=== PATIENT | female | born 1965 | race Caucasian/White ===

== ENCOUNTER 2017-12-15 12:14 | Emergency (ER) | payer OTHER ==
[~2017-12-15] VITALS: Ht 165.1 cm; Wt 63.5 kg
[~2017-12-15 12:14] MED LIST: AZIT250T12 PO; AZTH250C PO; HYDR-757 PO; HYDR1TAB PO; NAPR550T; NITR-65 PO; POTA20TA8 PO; PRD20T PO
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
[2017-12-15] MEDS ORDERED: CYCL5TAB PO (13:22)
[2017-12-15] MEDS ORDERED: NAPR-1071 PO (13:22)
[2017-12-15 13:30] VITALS: BP 140/95
== END 2017-12-15 13:33 | disposition home or self-care (01) ==
LOC: EDUNIT# 12:14 → ER 12:17
DX: S39.012A Strain of muscle, fascia and tendon of lower back, initial encounter (principal); G40.909 Epilepsy, unspecified, not intractable, without status epilepticus; M06.9 Rheumatoid arthritis, unspecified; F31.9 Bipolar disorder, unspecified; Z88.5 Allergy status to narcotic agent; Z88.2 Allergy status to sulfonamides; Z87.59 Personal history of other complications of pregnancy, childbirth and the puerperium; Z98.51 Tubal ligation status; V43.63XA Car passenger injured in collision with pick-up truck in traffic accident, initial encounter
CPT/HCPCS: 70450; 71046; 72125; 72131; 72170

== ENCOUNTER 2019-05-30 08:03 | Observation (INO) | payer SELFPAY ==
[~2019-05-30] VITALS: Ht 165.1 cm; Wt 63.5 kg
[~2019-05-30 08:03] MED LIST changes: +CYCL5TAB PO; +NAPR-1071 PO
[2019-05-30 08:37] LABS: BASOPHILS # (AUTO) 0.1 10^3/uL (0.0-0.1); BASOPHILS % (AUTO) 1 % (0-10); EOSINOPHILS # (AUTO) 0.3 10^3/uL (0.0-0.3); EOSINOPHILS % (AUTO) 2 % (0-10); HEMATOCRIT 38 % (35-52); HEMOGLOBIN 12.5 G/DL (11.5-16.0); LYMPHOCYTES % (AUTO) 14 % (12-44); MEAN CORPUSCULAR HEMOGLOBIN 31 PG (25-34); MEAN CORPUSCULAR HGB CONC 33 G/DL (32-36); MEAN CORPUSCULAR VOLUME 94 FL (80-99); MEAN PLATELET VOLUME 10.2 FL (7.4-10.4); MONOCYTES # (AUTO) 1.7 X 10^3 (0.0-1.0); MONOCYTES % (AUTO) 12 % (0-12); NEUTROPHILS # (AUTO) 10.5 X 10^3 (1.8-7.8); NEUTROPHILS % (AUTO) 72 % (42-75); PLATELET COUNT 301 10^3/uL (130-400); RED CELL DISTRIBUTION WIDTH 17.8 % (10.0-14.5); WHITE BLOOD COUNT 14.6 10^3/uL (4.3-11.0)
[2019-05-30 08:38] LABS: BILIRUBIN,URINE NEGATIVE (NEGATIVE); CLARITY,URINE CLEAR; COLOR,URINE YELLOW; GLUCOSE, URINE (UA) NEGATIVE (NEGATIVE); KETONES,URINE TRACE (NEGATIVE); LEUKOCYTE ESTERASE ,URINE 1+ (NEGATIVE); NITRITE,URINE NEGATIVE (NEGATIVE); PROTEIN,URINE 1+ (NEGATIVE)
[2019-05-30 08:45] LABS: BACTERIA,URINE FEW /HPF
[2019-05-30 08:56] LABS: ANISOCYTOSIS SLIGHT; EOSINOPHILS % (MANUAL) 3 %; LYMPHOCYTES % (MANUAL) 16 %; MONOCYTES % (MANUAL) 7 %; NEUTROPHILS % (MANUAL) 74 %
[2019-05-30 08:58] LABS: ALANINE AMINOTRANSFERASE 11 U/L (0-55); ALBUMIN 3.7 GM/DL (3.2-4.5); ALKALINE PHOSPHATASE 98 U/L (40-136); BILIRUBIN,TOTAL 0.4 MG/DL (0.1-1.0); BUN/CREATININE RATIO 15; CALCIUM 9.4 MG/DL (8.5-10.1); CARBON DIOXIDE 25 MMOL/L (21-32); CHLORIDE 103 MMOL/L (98-107); GFR ESTIMATED > 60; GLUCOSE 111 MG/DL (70-105); MAGNESIUM 1.9 MG/DL (1.6-2.4); POTASSIUM 3.7 MMOL/L (3.6-5.0); SODIUM 139 MMOL/L (135-145)
--- NOTE | 2019-05-30 09:04 | Diagnostic Imaging Report ---
EXAMINATION: Chest 2 view HISTORY: Fever and chills COMPARISON: 12/15/2017 FINDINGS: The lungs are clear without edema or pneumonia. No pleural effusion or pneumothorax. Heart size is normal. IMPRESSION: 1. Clear lungs. Dictated by: Dictated on workstation # [id number]
--- NOTE | 2019-05-30 09:16 | Diagnostic Imaging Report ---
EXAM: SHOULDER, RIGHT, 3 VIEWS. INDICATION: Right shoulder pain. Right neck pain. COMPARISON: 09/09/2009. FINDINGS: Cortical irregularity in the distal third of the right clavicle is new since the prior exam. No cortical lucencies are identified. No substantial degenerative change. The soft tissue shadows are unremarkable. IMPRESSION: Cortical irregularity involving the distal third of the right clavicle is new since the prior exam but appears chronic. No cortical lucencies to suggest an acute fracture. Dictated by: Dictated on workstation # [id number]
--- NOTE | 2019-05-30 10:05 | NUR ---
NOTIFIED PT THAT EVERYTHING WAS BACK ET DR WOULD BE IN WHEN HE COULD. DENIES NEEDS AT THIS TIME.
--- NOTE | 2019-05-30 10:42 | NUR ---
IN TALKING TO PT AT THIS TIME.
[2019-05-30] MEDS ORDERED: NS IV 1000 ML 1,000 ML IV ONE (10:43)
[2019-05-30] MEDS ORDERED: cefTRIAXone FOR IV USE 1,000 MG in WATER (STERILE) FOR INJECTION 10 ML IV ONE (10:45)
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
--- NOTE | 2019-05-30 11:11 | NUR ---
DR FABIAN HERE TO SEE PT.
[2019-05-30 11:40] VITALS: BP 126/79
--- NOTE | 2019-05-30 11:56 | NUR ---
CLOE ROMERO admitted to room 412-1, with an admitting diagnosis of UTI-Sepsis, on 05/30/19 from ER, accompanied by Staff.COLE ROMERO introduced to surroundings, call light, bed controls, phone, TV, temperature control, lights, meal times, smoking policy, visitor policy, side rail policy, bathrooms and showers. Patient Rights given to patient in the handbook. COLE ROMERO verbalizes understanding that [facility] is not responsible for the loss or damage to any personal effects or valuables that are kept in the patients posession during their hospitalization. COLE ROMERO verbalizes understanding of Interdisciplinary Patient Education. Patient and/or family were informed about the Rapid Response Team and its purpose.
[2019-05-30] MEDS ORDERED: ONDANSETRON 4 MG/2 ML (SDV) Z0FRAN IV PRN (12:00)
[2019-05-30] MEDS ORDERED: IBUPROFEN 600 MG (MOTRIN) TAB PO PRN (12:00)
[2019-05-30] MEDS ORDERED: ACETAMINOPHEN 500 MG TAB (TYLENOL) PO PRN (12:00)
[2019-05-30 12:01] VITALS: BP 126/79
[2019-05-30] MEDS ORDERED: ASPI-983 PO (13:19)
--- NOTE | 2019-05-30 13:20 | NUR ---
SPOKE WITH THE PATIENT ABOUT HER MEDICATIONS. SHE STATES SHE IS CURRENTLY ONLY TAKING ASPIRIN 81MG DAILY OTC.
[2019-05-30] MEDS ORDERED: CALCIUM CARBONATE 500 MG (TUMS) TAB.CHEW PO PRN (13:30)
[2019-05-30] MEDS ORDERED: HYDROcodone/APAP 5 MG/325 MG (LORTAB) TAB PO PRN (13:30)
[2019-05-30] MEDS ORDERED: LOPERAMIDE 2 MG (IMODIUM) TABLET PO PRN (13:30)
[2019-05-30] MEDS ORDERED: IBUPROFEN TABLET 200 MG TAB PO PRN (13:30)
[2019-05-30] MEDS ORDERED: MELATONIN 3 MG TABLET PO PRN (13:30)
[2019-05-30] MEDS ORDERED: ALPRAZolam 0.25 MG (XANAX) TAB PO PRN (13:30)
[2019-05-30] MEDS ORDERED: diphenhydrAMINE 25 MG TAB (BENADRYL) PO PRN (13:30)
[2019-05-30] MEDS ORDERED: DOCUSATE SODIUM 100 MG (COLACE) CAP PO PRN (13:30)
--- NOTE | 2019-05-30 14:22 | History & Physical-Hospitalist ---
ARIELA CASTANON,MED STUDENT 05/30/19 1422: History of Present Illness HPI/Chief Complaint CC: Fever, malaise HPI: Pt presented to ER to have her shoulder evaluated after traumatic fall that occurred one week ago after experiencing ongoing pain and new onset fever/chills. During this time, the color of her urine changed and she was urinating less frequently. Endorses associated myalgia, KOCH, SOB, abdominal discomfort, cough, suprapubic pain. Tried aleve with some reduction in fever. Accompanied by in room. Source: patient, family Date Seen 05/30/19 Time Seen by a Provider: 14:15 Attending Physician Janette Fabian DO [facility] Referring Physician Date of Admission May 30, 2019 at 11:20 Home Medications & Allergies Home Medications Reviewed patient Home Medication Reconciliation performed by pharmacy medication reconciliations instrument technician and/or nursing. Patients Allergies have been reviewed. Allergies Allergies Coded Allergies Sulfa (Sulfonamide Antibiotics) (Unverified Allergy, Mild, 12/18/08) bupropion (Unverified Allergy, Mild, 12/18/08) codeine (Unverified Allergy, Mild, 12/18/08) Past Xmijjik-Ohhezu-Vndnjd Hx Patient Social History Alcohol Use: Rarely Uses Recreational Drug Use: No Smoking Status: Current Everyday Smoker 2nd Hand Smoke Exposure: Yes Recent Foreign Travel: No Contact w/other who traveled: No Recent Infectious Disease Expo: No Seasonal Allergies Seasonal Allergies: Yes Past Medical History Surgeries: Section, Lumpectomy, Orthopedic, Tubal Ligation Neurological: Seizure Disorder, TIA Tubal Ligation Musculoskeletal: Rheumatoid Arthritis Cancer: Cervical Psychosocial: Bipolar History of Blood Disorders: No Family History Arthritis 19 FATHER 19 MOTHER Asthma 19 MOTHER G8 SISTER Cataracts 19 MOTHER Hypertension 19 MOTHER Neoplasm 19 FATHER Thyroid disease 19 MOTHER G8 SISTER Asthma (father, mother ), Cancer (pancreatic cancer in father ), CAD Over 55 Years Old Review of Systems Constitutional: chills, diaphoresis, fever, malaise, weakness EENTM: ear pain (R ear ), eye pain (pressure behind eyes ); No hearing loss, No blurred vision, No double vision Respiratory: cough, dyspnea on exertion (recent, past few days ); No hemoptysis; phlegm, short of breath Cardiovascular: No chest pain, No edema, No Hx of Intervention; palpitations Gastrointestinal: abdominal pain (diffusely across stomach ); No constipation, No diarrhea, No dysphagia, No hematemesis, No heartburn, No melena; nausea; No vomiting Genitourinary: see HPI, decreased output, dysuria, pain Musculoskeletal: back pain, joint pain; No muscle cramps Skin: No lesions, No lumps, No rash Psychiatric/Neurological: Anxiety, Depressed, Headache Physical Exam Physical Exam Vital Signs Vital Signs - First Documented 05/30/19 08:03 Temp 37.8 Pulse 94 Resp 16 B/P (MAP) 106/96 (99) Pulse Ox 100 O2 Delivery Room Air Capillary Refill : Less Than 3 Seconds Height, Weight, BMI Height: 5'5.00" Weight: 140lbs. 0oz. [id number]; 23.29 BMI Method:Stated General Appearance: No Apparent Distress, WD/WN Eyes: Bilateral Eye Normal Inspection, Bilateral Eye PERRL, Bilateral Eye EOMI HEENT: Pharynx Normal, Moist Mucous Membranes Neck: Non Tender, Supple Respiratory: Chest Non Tender, Lungs Clear, Normal Breath Sounds, No Accessory Muscle Use, No Respiratory Distress Cardiovascular: No Edema, No Gallop, No Murmur, Normal Peripheral Pulses, Irregularly Irregular Gastrointestinal: Non Tender, Soft Back: Normal Inspection, No CVA Tenderness Extremity: Non Tender, No Calf Tenderness, No Pedal Edema Neurologic/Psychiatric: Alert, Oriented x3 Skin: Normal Color, Warm/Dry Lymphatic: No Adenopathy (cervical, supra/infraclavicular) Results Results/Procedures Labs Laboratory Tests 05/30/19 08:27 Patient resulted labs reviewed. Imaging: Reviewed Imaging Films, Reviewed Imaging Report Assessment/Plan Admission Diagnosis Urinary tract infection Admission Status: Observation Assessment and Plan UTI Sepsis URI R shoulder pain Admit for observation IVF support, antipyretics, pain control and Ceftriaxone cover UTI and possible URI DVT prophylaxis Clinical Quality Measures DVT/VTE Risk/Contraindication: Risk Factor Score Per Nursin RFS Level Per Nursing on Admit: 2=Moderate JANETTE FABIAN DO 05/30/192021: History of Present Illness HPI/Chief Complaint CC: Fever HPI: this is a 53yoWF with essentially no medical history who presented with fever and lethargy found to have UTI and sepsis with elevated lactic acid and white count. Her BP was maintained and good level so she was placed empirically on antibiotics, IV fluids, Influenza was negative and will be provided supportive care and likely DC tomorrow. Source: patient Past Xanozxr-Elxufi-Ppzvay Hx Past Med/Social Hx: Reviewed Nursing Past Med/Soc Hx, Reviewed and Corrections made Patient Social History Marrital Status: Employed/Student: employed ([employer]) Smoking Status: Current Everyday Smoker Family History Arthritis 19 FATHER 19 MOTHER Asthma 19 MOTHER G8 SISTER Cataracts 19 MOTHER Hypertension 19 MOTHER Neoplasm 19 FATHER Thyroid disease 19 MOTHER G8 SISTER Review of Systems Constitutional: see HPI, dizziness, fever, malaise, weakness Physical Exam Physical Exam General Appearance: Mild Distress, Other (mildly acutely ill) Eyes: Right Eye Normal Inspection, Right Eye PERRL HEENT: PERRL/EOMI, Normal ENT Inspection, Pharynx Normal, Moist Mucous Membranes Neck: Full Range of Motion, Normal Inspection, Non Tender Respiratory: Chest Non Tender, Lungs Clear, Normal Breath Sounds, No Accessory Muscle Use, No Respiratory Distress Cardiovascular: Regular Rate, Rhythm, No Edema, No Gallop, No JVD, No Murmur, Normal Peripheral Pulses Gastrointestinal: Normal Bowel Sounds, No Organomegaly, No Pulsatile Mass, Non Tender, Soft Back: Normal Inspection, No CVA Tenderness, No Vertebral Tenderness Extremity: Normal Capillary Refill, Normal Inspection, Normal Range of Motion, Non Tender, No Calf Tenderness, No Pedal Edema Neurologic/Psychiatric: Alert, Oriented x3, No Motor/Sensory Deficits, Normal Mood/Affect Skin: Normal Color, Warm/Dry Lymphatic: No Adenopathy Assessment/Plan Admission Diagnosis Assessment: Sepsis UTI Dehydration Plan: IV abx IVF Pain meds Admission Status: Observation Diagnosis/Problems Diagnosis/Problems (1) Sepsis Status: Acute Qualifiers: Sepsis type: sepsis due to unspecified organism Sepsis acute organ dysfunction status: without acute organ dysfunction Qualified Codes: A41.9 - Sepsis, unspecified organism (2) Urinary tract infection Status: Acute Qualifiers: Urinary tract infection type: site unspecified Hematuria presence: without hematuria Qualified Codes: N39.0 - Urinary tract infection, site not specified Supervisory-Addendum Brief Verification & Attestation Participated in pt care: history, MDM, physical Personally performed: exam, history, MDM, supervision of care Care discussed with: Medical Student Procedures: n/a Results interpretation: Verified all documentation Verification and Attestation of Medical Student E/M Service A medical student performed and documented this service in my presence. I reviewed and verified all information documented by the medical student and made modifications to such information, when appropriate. I personally performed the physical exam and medical decision making. Janette Fabian, May 30, 2019,20:22 ARIELA CASTANON,MED STUDENT May 30, 2019 14:22 JANETTE CRUMP DO May 30, 2019 20:22 POS
[2019-05-30] MEDS: ENOXAPARIN 40 MG/0.4 ML (LOVENOX) SYR SC SCH (14:44)
[2019-05-30 15:52] VITALS: BP 112/74
[2019-05-30 19:17] VITALS: BP 99/63
[2019-05-30 19:46] VITALS: BP 110/68
[2019-05-30] MEDS: POLYETHYLENE GLYCOL 17 GM (MIRALAX) PACK PO SCH (19:46)
[2019-05-30] MEDS: SENNA W/DOCUSATE (SENOKOT S) TABLET PO SCH (19:46)
[2019-05-31] VITALS: BP 148/80
[2019-05-31 04:00] VITALS: BP 103/63
[2019-05-31 06:50] LABS: BASOPHILS # (AUTO) 0.1 10^3/uL (0.0-0.1); BASOPHILS % (AUTO) 1 % (0-10); EOSINOPHILS # (AUTO) 0.4 10^3/uL (0.0-0.3); EOSINOPHILS % (AUTO) 5 % (0-10); HEMATOCRIT 31 % (35-52); LYMPHOCYTES # (AUTO) 2.1 X 10^3 (1.0-4.0); LYMPHOCYTES % (AUTO) 25 % (12-44); MEAN CORPUSCULAR HEMOGLOBIN 31 PG (25-34); MEAN CORPUSCULAR HGB CONC 32 G/DL (32-36); MEAN CORPUSCULAR VOLUME 94 FL (80-99); MEAN PLATELET VOLUME 10.8 FL (7.4-10.4); MONOCYTES % (AUTO) 12 % (0-12); NEUTROPHILS # (AUTO) 4.9 X 10^3 (1.8-7.8); NEUTROPHILS % (AUTO) 58 % (42-75); PLATELET COUNT 238 10^3/uL (130-400); RED CELL DISTRIBUTION WIDTH 17.7 % (10.0-14.5); WHITE BLOOD COUNT 8.5 10^3/uL (4.3-11.0)
[2019-05-31 07:21] LABS: ALANINE AMINOTRANSFERASE 12 U/L (0-55); ALBUMIN 2.9 GM/DL (3.2-4.5); ALKALINE PHOSPHATASE 89 U/L (40-136); BILIRUBIN,TOTAL 0.2 MG/DL (0.1-1.0); BUN/CREATININE RATIO 20; CALCIUM 8.2 MG/DL (8.5-10.1); CARBON DIOXIDE 23 MMOL/L (21-32); CHLORIDE 108 MMOL/L (98-107); CREATININE SERUM 0.66 MG/DL (0.60-1.30); GFR ESTIMATED > 60; GLUCOSE 89 MG/DL (70-105); POTASSIUM 3.9 MMOL/L (3.6-5.0); SODIUM 140 MMOL/L (135-145); TOTAL PROTEIN 6.2 GM/DL (6.4-8.2)
[2019-05-31 08:00] VITALS: BP 96/62
[2019-05-31] MEDS: POLYETHYLENE GLYCOL 17 GM (MIRALAX) PACK PO SCH (08:10)
[2019-05-31] MEDS: SENNA W/DOCUSATE (SENOKOT S) TABLET PO SCH (08:11)
[2019-05-31] MEDS ORDERED: NS IV 1000 ML 1,000 ML IV SCH (09:30)
[2019-05-31] MEDS ORDERED: CEFD300C3 PO (09:56)
[2019-05-31] MEDS ORDERED: cefTRIAXone 1,000 MG/SWFI 10 ML IV PUSH IV SCH ×2 (11:00)
--- NOTE | 2019-05-31 11:24 | Discharge Summary ---
ARIELA CASTANON,MED STUDENT 05/31/19 1124: Diagnosis/Chief Complaint Date of Admission May 30, 2019 at 11:20 Date of Discharge Discharge Date: May 31, 2019 Admission Diagnosis Assessment: Sepsis UTI Dehydration Plan: IV abx IVF Pain [facility] Discharge Diagnosis (1) Sepsis Status: Acute (2) Urinary tract infection Status: Acute Discharge Summary Discharge Physical Exam Allergies: Coded Allergies: Sulfa (Sulfonamide Antibiotics) (Unverified Allergy, Mild, 12/18/08) bupropion (Unverified Allergy, Mild, 12/18/08) codeine (Unverified Allergy, Mild, 12/18/08) Vitals & I&Os Vital Signs Date Time Temp Pulse Resp B/P (MAP) Pulse Ox O2 Delivery O2 Flow Rate FiO2 05/31/19 08:00 36.0 65 20 96/62 (73) 98 Room Air General Appearance: No Apparent Distress, WD/WN HEENT: PERRL/EOMI, Pharynx Normal, Moist Mucous Membranes Respiratory: Chest Non Tender, Lungs Clear, Normal Breath Sounds, No Accessory Muscle Use, No Respiratory Distress Cardiovascular: No Edema, No Gallop, No Murmur, Normal Peripheral Pulses, Other (EKG read as Supraventricular bigeminy ) Gastrointestinal: Non Tender, Soft Extremity: No Calf Tenderness, No Pedal Edema Skin: Normal Color, Warm/Dry Neurologic/Psychiatric: Alert, Oriented x3 Hospital Course Pt presented to ER one week post traumatic fall with shoulder and neck pain to have get X rays. Endorsed Fever/chills, myalgia, KOCH, SOB, cough, abdominal discomfort, suprapubic pain and dysuria and UA revealed UTI. Pt met sepsis protocol so was admitted for IV antibiotics and fluid resuscitation. Chest X rays revealed no fracture. Pt did well overnight, was no longer fevering and white count fell to within normal limits. Patient was discharged with course of oral antibiotics. Labs (last 24 hrs) Laboratory Tests 05/31/19 06:24: White Blood Count 8.5, Red Blood Count 3.28L, Hemoglobin 10.0L, Hematocrit 31L, Mean Corpuscular Volume 94, Mean Corpuscular Hemoglobin 31, Mean Corpuscular Hemoglobin Concent 32, Red Cell Distribution Width 17.7H, Platelet Count 238, Mean Platelet Volume 10.8H, Neutrophils (%) (Auto) 58, Lymphocytes (%) (Auto) 25, Monocytes (%) (Auto) 12, Eosinophils (%) (Auto) 5, Basophils (%) (Auto) 1, Neutrophils # (Auto) 4.9, Lymphocytes # (Auto) 2.1, Monocytes # (Auto) 1.0, Eosinophils # (Auto) 0.4H, Basophils # (Auto) 0.1, Sodium Level 140, Potassium Level 3.9, Chloride Level 108H, Carbon Dioxide Level 23, Anion Gap 9, Blood Urea Nitrogen 13, Creatinine 0.66, Estimat Glomerular Filtration Rate > 60, BUN/Creatinine Ratio 20, Glucose Level 89, Calcium Level 8.2L, Corrected Calcium 9.1, Total Bilirubin 0.2, Aspartate Amino Transf (AST/SGOT) 14, Alanine Aminotransferase (ALT/SGPT) 12, Alkaline Phosphatase 89, Total Protein 6.2L, Albumin 2.9L Microbiology 05/30/19 Influenza Types A,B Antigen (VIDAL) - Final, Complete Patient resulted labs reviewed. Pending Labs Laboratory Tests 05/31/19 06:24: White Blood Count 8.5, Red Blood Count 3.28, Hemoglobin 10.0, Hematocrit 31, Mean Corpuscular Volume 94, Mean Corpuscular Hemoglobin 31, Mean Corpuscular Hemoglobin Concent 32, Red Cell Distribution Width 17.7, Platelet Count 238, Mean Platelet Volume 10.8, Neutrophils (%) (Auto) 58, Lymphocytes (%) (Auto) 25, Monocytes (%) (Auto) 12, Eosinophils (%) (Auto) 5, Basophils (%) (Auto) 1, Neutrophils # (Auto) 4.9, Lymphocytes # (Auto) 2.1, Monocytes # (Auto) 1.0, Eosinophils # (Auto) 0.4, Basophils # (Auto) 0.1, Sodium Level 140, Potassium Level 3.9, Chloride Level 108, Carbon Dioxide Level 23, Anion Gap 9, Blood Urea Nitrogen 13, Creatinine 0.66, Estimat Glomerular Filtration Rate > 60, BUN/Creatinine Ratio 20, Glucose Level 89, Calcium Level 8.2, Corrected Calcium 9.1, Total Bilirubin 0.2, Aspartate Amino Transf (AST/SGOT) 14, Alanine Aminotransferase (ALT/SGPT) 12, Alkaline Phosphatase 89, Total Protein 6.2, Albumin 2.9 Imaging: Reviewed Imaging Films, Reviewed Imaging Report Discharge Home Medications: Active Scripts Active Cefdinir 300 Mg Capsule 300 Mg PO BID Reported Aspirin EC (Aspirin) 81 Mg Tablet.dr 81 Mg PO DAILY Instructions to patient/family Please see electronic discharge instructions given to patient. Clinical Quality Measures DVT/VTE Risk/Contraindication: Risk Factor Score Per Nursin RFS Level Per Nursing on Admit: 2=Moderate JANETTE FABIAN DO 05/31/192124: Diagnosis/Chief Complaint Discharge Diagnosis (1) Sepsis Status: Acute (2) Urinary tract infection Status: Acute (3) Upper respiratory infection Status: Acute Discharge Summary Discharge Physical Exam Allergies: Coded Allergies: Sulfa (Sulfonamide Antibiotics) (Unverified Allergy, Mild, 12/18/08) bupropion (Unverified Allergy, Mild, 12/18/08) codeine (Unverified Allergy, Mild, 12/18/08) General Appearance: No Apparent Distress, WD/WN Respiratory: Lungs Clear Cardiovascular: Regular Rate, Rhythm Neurologic/Psychiatric: Alert, Oriented x3, No Motor/Sensory Deficits, Normal Mood/Affect Hospital Course Was the Problem List Reviewed?: Yes Hospital course: Pt had an uneventful hospital course, she was admitted for fever, leukocytosis, early UTI and upper respiratory illness. Pt was given IV antibiotics, IV fluids and supportive care and returned back to her baseline activity, white count normalized and she was able to be discharged after normal saline of 1 L to help with her slight dizziness. Discussion & Recommendations Discharge Planning: <30 minutes discharge planning Supervisory-Addendum Brief Verification & Attestation Participated in pt care: history, MDM, physical Personally performed: exam, history, MDM, supervision of care Care discussed with: Medical Student Procedures: n/a Results interpretation: Verified all documentation Verification and Attestation of Medical Student E/M Service A medical student performed and documented this service in my presence. I reviewed and verified all information documented by the medical student and made modifications to such information, when appropriate. I personally performed the physical exam and medical decision making. Janette Fabian, May 31, 2019,21:25 Problem Qualifiers (1) Sepsis: Sepsis type: sepsis due to unspecified organism Sepsis acute organ dysfunction status: without acute organ dysfunction Qualified Codes: A41.9 - Sepsis, unspecified organism (2) Urinary tract infection: Urinary tract infection type: site unspecified Hematuria presence: without hematuria Qualified Codes: N39.0 - Urinary tract infection, site not specified (3) Upper respiratory infection: URI type: unspecified URI Qualified Codes: J06.9 - Acute upper respiratory infection, unspecified ARIELA CASTANON,MED STUDENT May 31, 2019 11:24 JANETTE CRUMP DO May 31, 2019 21:25 POS
[2019-05-31 12:00] VITALS: BP 108/75
--- NOTE | 2019-05-31 13:01 | Physical Therapy Progress Note ---
Therapy Progress Note Patient ambulating independently in hallway without difficulty. No skilled PT indicated. Thank you for this referral. MARLEN MILAN PT May 31, 2019 13:01 POS
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
[2019-05-31] MEDS: ENOXAPARIN 40 MG/0.4 ML (LOVENOX) SYR SC SCH (13:52)
[2019-05-31 17:08] VITALS: BP 108/75
== END 2019-05-31 09:55 | disposition home or self-care (01) ==
LOC: EDUNIT# 08:03 → ER 08:04 → UNDOADMOB 11:20 → 4TH 11:20 → UNDODISOB 05-31 17:05
PROVIDERS: ADMIT Internal Medicine; ATTEND Internal Medicine
DX: A41.9 Sepsis, unspecified organism (principal); N39.0 Urinary tract infection, site not specified; J06.9 Acute upper respiratory infection, unspecified; S49.91XA Unspecified injury of right shoulder and upper arm, initial encounter; M25.511 Pain in right shoulder; G40.909 Epilepsy, unspecified, not intractable, without status epilepticus; M06.9 Rheumatoid arthritis, unspecified; F31.9 Bipolar disorder, unspecified; F17.200 Nicotine dependence, unspecified, uncomplicated; W10.8XXA Fall (on) (from) other stairs and steps, initial encounter; Z88.5 Allergy status to narcotic agent; Z88.2 Allergy status to sulfonamides; Z88.8 Allergy status to other drugs, medicaments and biological substances; Z98.51 Tubal ligation status; Z86.73 Personal history of transient ischemic attack (TIA), and cerebral infarction without residual deficits; Z82.61 Family history of arthritis; Z82.49 Family history of ischemic heart disease and other diseases of the circulatory system; Z80.9 Family history of malignant neoplasm, unspecified
CPT/HCPCS: 36415; 71046; 73030; 80053; 81000; 83605; 83735; 85007; 85025; 85027; 86141; 87040; 87077; 87088; 87186; 87804; 93005; 93041; 96374; G0378

== ENCOUNTER 2019-06-30 20:05 | Emergency (ER) | payer SELFPAY ==
[~2019-06-30] VITALS: Ht 165.1 cm; Wt 65.0 kg
[~2019-06-30 20:05] MED LIST changes: +ASPI-983 PO; +CEFD300C3 PO
--- NOTE | 2019-06-30 20:20 | ED Upper Extremity ---
General Chief Complaint: Upper Extremity Stated Complaint: FALL/LEFT HAND INJURY Nursing Triage Note: LT WRIST PAIN ONSET AFTER FALLING LAST NOC. REPORTS TRIPPED OVER HER DOG AT HOME WHILE GOING DOWN THE STAIRS. NO OTHER C/O VOICED Nursing Sepsis Screen: No Definite Risk Source: patient Exam Limitations: no limitations History of Present Illness Date Seen by Provider: Jun 30, 2019 Time Seen by Provider: 20:18 Initial Comments With reports of left wrist pain and swelling last night. She's had this wrapped with an Kunal wrap since the event. She fell because she tripped over her dog. Onset: yesterday Severity: moderate Pain/Injury Location: left wrist, left hand Method of Injury: fell Modifying Factors: Worse With Movement Allergies and Home Medications Allergies Coded Allergies: Sulfa (Sulfonamide Antibiotics) (Unverified Allergy, Mild, 12/18/08) bupropion (Unverified Allergy, Mild, 12/18/08) codeine (Unverified Allergy, Mild, 12/18/08) Home Medications Aspirin 81 Mg Tablet.dr, 81 MG PO DAILY, (Reported) Cefdinir 300 Mg Capsule, 300 MG PO BID Prescribed by: ALEK FABIAN on 05/31/19 0956 Patient Home Medication List Home Medication List Reviewed: Yes Review of Systems Constitutional: see HPI EENTM: see HPI Respiratory: no symptoms reported Cardiovascular: no symptoms reported Genitourinary: no symptoms reported Musculoskeletal: see HPI Skin: no symptoms reported Psychiatric/Neurological: No Symptoms Reported Past Xsqeezx-Zejglh-Tjvnym Hx Patient Social History Alcohol Use: Rarely Uses Recreational Drug Use: No Smoking Status: Never a Smoker Type Used: Cigarettes 2nd Hand Smoke Exposure: Yes Recent Foreign Travel: No Contact w/Someone Who Travel: No Recent Infectious Disease Expo: No Seasonal Allergies Seasonal Allergies: Yes Past Medical History Surgeries: Yes (back surgery, cervical biopsy) Section, Lumpectomy, Orthopedic, Tubal Ligation Respiratory: No Cardiac: No Neurological: Yes Seizure Disorder, 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 Gastrointestinal: No Musculoskeletal: Yes Rheumatoid Arthritis Endocrine: No Cancer: Yes Cervical Psychosocial: Yes Bipolar Integumentary: No Blood Disorders: No Family Medical History Arthritis 19 FATHER 19 MOTHER Asthma 19 MOTHER G8 SISTER Cataracts 19 MOTHER Hypertension 19 MOTHER Neoplasm 19 FATHER Thyroid disease 19 MOTHER G8 SISTER Asthma, Cancer, CAD Over 55 Years Old Physical Exam Vital Signs Vital Signs - First Documented 06/30/19 20:09 Temp 36.7 Pulse 88 Resp 18 B/P (MAP) 108/75 (86) Pulse Ox 97 O2 Delivery Room Air Capillary Refill : Less Than 3 Seconds Height, Weight, BMI Height: 5'5.00" Weight: 140lbs. 0oz. 63.253617rv; 23.00 BMI Method:Stated General Appearance: WD/WN, no apparent distress Neck: non-tender, full range of motion Respiratory: no respiratory distress, no accessory muscle use Shoulder: normal inspection, non-tender Elbow/Forearm: normal inspection, non-tender Wrist: Yes normal inspection, Yes non-tender Hand: Left (the left hand has some swelling. She does have her Kunal wrap on fairly tight, I suspect at least part of this swelling is due to the tight Kuanl wrap. Most of the swelling is distal to the wrap itself over the knuckle. Most of her pain is over the ulnar styloid.) Neurologic/Tendon: normal sensation, normal motor functions, normal tendon functions Neurologic/Psychiatric: alert, normal mood/affect Skin: normal color, warm/dry Progress/Results/Core Measures Results/Orders My Orders Orders - MARY SANTACRUZ APRN Hand, Left, 3 Views (06/30/19 20:16) Forearm, Left, 2 Views (06/30/19 20:16) Rx-Hydrocodone/Apap 5-325 Mg (Rx-Vicodin (06/30/19 20:30) Medications Given in ED Current Medications Medications Dose Ordered Sig/Darron Route Start Time Stop Time Status Last Admin Dose Admin Acetaminophen/ Hydrocodone Bitart 1 ea Q4H PRN PO 06/30/19 20:30 06/30/19 20:29 1 EA Vital Signs/I&O 06/30/19 20:09 Temp 36.7 Pulse 88 Resp 18 B/P (MAP) 108/75 (86) Pulse Ox 97 O2 Delivery Room Air Blood Pressure Mean: 86 Departure Impression Primary Impression: Left wrist sprain Qualified Codes: S63.502A - Unspecified sprain of left wrist, initial encounter Disposition: HOME, SELF-CARE Condition: Improved Departure-Patient Inst. Decision time for Depature: 20:51 Referrals: [facility] (PCP/Family) Primary Care Physician Patient Instructions: Wrist Sprain (DC) Add. Discharge Instructions: 1. Wear the splint for the next 3-5 days until pain subsides. Anti-inf lammatories ibuprofen, naproxen for pain control. Return to ER for any concerns. Follow-up with your doctor next week All discharge instructions reviewed with patient and/or family. Voiced understanding. MARY SANTACRUZ APRN Jun 30, 2019 20:20
[2019-06-30] MEDS ORDERED: RX-HYDROCODONE/APAP 5/325 MG #4 TAB PK PO PRN (20:30)
--- NOTE | 2019-06-30 20:48 | Diagnostic Imaging Report ---
INDICATION: Injury, pain. FINDINGS: No fracture or dislocation or foreign body identified. IMPRESSION: Negative. Dictated by: Dictated on workstation # [id number]
--- NOTE | 2019-06-30 20:49 | Diagnostic Imaging Report ---
INDICATION: Tripped, fall, pain. FINDINGS: No fracture, dislocation, foreign body or acute articular incongruity is apparent. IMPRESSION: No acute appearing abnormality. Dictated by: Dictated on workstation # [id number]
[2019-06-30 20:55] VITALS: BP 108/75
== END 2019-06-30 20:57 | disposition home or self-care (01) ==
LOC: EDUNIT# 20:05 → ER 20:07
DX: S63.502A Unspecified sprain of left wrist, initial encounter (principal); G40.909 Epilepsy, unspecified, not intractable, without status epilepticus; M06.9 Rheumatoid arthritis, unspecified; F31.9 Bipolar disorder, unspecified; Z85.41 Personal history of malignant neoplasm of cervix uteri; Z86.73 Personal history of transient ischemic attack (TIA), and cerebral infarction without residual deficits; Z79.82 Long term (current) use of aspirin; Z77.22 Contact with and (suspected) exposure to environmental tobacco smoke (acute) (chronic); Z98.51 Tubal ligation status; Z88.2 Allergy status to sulfonamides; Z88.5 Allergy status to narcotic agent; Z88.8 Allergy status to other drugs, medicaments and biological substances; Z82.49 Family history of ischemic heart disease and other diseases of the circulatory system; W01.0XXA Fall on same level from slipping, tripping and stumbling without subsequent striking against object, initial encounter; Y92.009 Unspecified place in unspecified non-institutional (private) residence as the place of occurrence of the external cause
CPT/HCPCS: 73090; 73130

== ENCOUNTER → 2019-12-13 | Outpatient (CLI) | payer OTHER ==
--- NOTE | 2019-12-13 18:55 | Diagnostic Imaging Report ---
INDICATION: Palpable lumps in the breast. History of breast cysts. EXAMINATION: Bilateral breast ultrasound. FINDINGS: Right breast: Corresponding to the area of palpable fullness, a cyst measuring 1.2 cm has a small amount of mobile internal debris but no vascularized or soft tissue component. Left breast: Corresponding to the palpable abnormality at the 12 o'clock position, 1 cm from the nipple, there is an anechoic benign simple cyst measuring 2.1 cm. Note is made of additional breast cysts, bilaterally. IMPRESSION: There are bilateral breast cysts accounting for the areas of palpable fullness. No suspicious finding. Assuming the absence of adverse interval clinical change this patient can be returned to routine bilateral screening next due in one year's time. ACR BI-RADS Category 2: Benign findings. Result letter will be mailed to the patient. Note: At least 10% of breast cancer is not imaged by mammography. Dictated by: Dictated on workstation # [id number]
--- NOTE | 2019-12-13 20:13 | Diagnostic Imaging Report ---
INDICATION: Patient complains of palpable fullness in the retroareolar right breast and just superior to the nipple on the left. COMPARISON: Studies of 04/2014 and 05/2008. FINDINGS: New well-defined circumscribed spherical mass in retroareolar left breast corresponds to the area of palpable fullness on separately performed ultrasound. It was shown to be an anechoic simple cyst. A right retroareolar nodule is also subsequently shown to be a cyst on ultrasound. Parenchymal pattern is markedly heterogeneous and additional cystic nodules are noted. No suspicious calcifications no architectural distortion. IMPRESSION: Mammographic and sonographic findings of bilateral breast cysts with no suspicious finding. ACR BI-RADS Category 2: Benign findings. Result letter will be mailed to the patient. Note: At least 10% of breast cancer is not imaged by mammography. Dictated by: Dictated on workstation # [id number]
== END ==
LOC: RAD 14:03
PROVIDERS: ATTEND Nurse Practitioner Family
DX: N63.21 Unspecified lump in the left breast, upper outer quadrant (principal)
CPT/HCPCS: 76642; 77062; 77066

== ENCOUNTER 2020-09-20 15:10 | Emergency (ER) | payer SELFPAY ==
[~2020-09-20] VITALS: Ht 162 cm; Wt 66.0 kg
[~2020-09-20 15:10] MED LIST changes: +ASPI-1238 PO; -ASPI-983 PO
[2020-09-20] MEDS ORDERED: KETOROLAC 30 MG/ML VIAL IM PRN (15:30)
[2020-09-20] MEDS ORDERED: ORPHENADRINE 60 MG/2 ML (NORFLEX) AMP (ED ONLY) IM ONE (15:30)
--- NOTE | 2020-09-20 15:40 | ED Fall/Injury ---
General Chief Complaint: Trauma-Non Activation Stated Complaint: FALL LEFT RIB PAIN Nursing Triage Note: ARRIVED VIA AMB TO ROOM 06. STATES SHE TRIPPED OVER HER DOGS X3 DAYS AGO HURTING HER LEFT RIB AREA. Source: patient Exam Limitations: no limitations History of Present Illness Date Seen by Provider: Sep 20, 2020 Time Seen by Provider: 15:18 Initial Comments This is a well-appearing 54-year-old female presents to the ER with complaints of left-sided rib pain after sustaining a fall approximately 3 days ago. States she accidentally tripped over her dog and landed on the back of her couch. Has taken her home hydrocodone 10/325mg tablet approximate 1 hour prior to arrival. States this is not "touched her pain". Reports some bruising and mild swelling. Denies difficulty breathing or shortness of breath. No other injuries reported. Allergies and Home Medications Allergies Coded Allergies: Sulfa (Sulfonamide Antibiotics) (Unverified Allergy, Mild, 12/18/08) bupropion (Unverified Allergy, Mild, 12/18/08) codeine (Unverified Allergy, Mild, 12/18/08) Home Medications Aspirin 81 Mg Tablet.dr, 81 MG PO DAILY, (Reported) Patient Home Medication List Home Medication List Reviewed: Yes Review of Systems Review of Systems Constitutional: no symptoms reported Eyes: No Symptoms Reported Ears, Nose, Mouth, Throat: no symptoms reported Respiratory: no symptoms reported Cardiovascular: no symptoms reported Gastrointestinal: no symptoms reported Genitourinary: no symptoms reported Musculoskeletal: see HPI Skin: see HPI Psychiatric/Neurological: No Symptoms Reported Past Mbcnspt-Mncztn-Tioscl Hx Patient Social History Alcohol Use: Occasionally Uses Type Used: Electronic/Vapor 2nd Hand Smoke Exposure: Yes Recent Infectious Disease Expo: No Seasonal Allergies Seasonal Allergies: Yes Past Medical History Surgeries: Yes (back surgery, cervical biopsy) Section, Lumpectomy, Orthopedic, Tubal Ligation Respiratory: No Cardiac: No Neurological: 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 Disorder, 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 Gastrointestinal: No Musculoskeletal: Yes Rheumatoid Arthritis Endocrine: No Cancer: Yes Cervical Psychosocial: Yes Bipolar Integumentary: No Blood Disorders: No Family Medical History Arthritis 19 FATHER 19 MOTHER Asthma 19 MOTHER G8 SISTER Cataracts 19 MOTHER Hypertension 19 MOTHER Neoplasm 19 FATHER Thyroid disease 19 MOTHER G8 SISTER Asthma, Cancer, CAD Over 55 Years Old Physical Exam Vital Signs Vital Signs - First Documented 09/20/20 15:18 Temp 36.0 Pulse 76 Resp 16 B/P (MAP) 143/84 (103) Pulse Ox 98 O2 Delivery Room Air Capillary Refill : Less Than 3 Seconds Height, Weight, BMI Height: 5'5.00" Weight: 140lbs. 0oz. 63.154961bm; 25.00 BMI Method:Stated General Appearance: WD/WN, no apparent distress HEENT: PERRL/EOMI Neck: full range of motion, normal inspection Cardiovascular: regular rate, rhythm, no murmur Respiratory: lungs clear, normal breath sounds, no respiratory distress, no accessory muscle use, other (Yellow bruising with minimal swelling over left lateral ribs apx. ribs 5-7) Gastrointestinal: normal bowel sounds, non tender, soft Back: normal inspection, no vertebral tenderness Extremities: normal range of motion, non-tender Neurologic/Psychiatric: no motor/sensory deficits, alert, normal mood/affect, oriented x 3 Skin: normal color, warm/dry Delroy Coma Score Best Eye Response: (4) Open Spontaneously Best Verbal Response: (5) Oriented Best Motor Response: (6) Obeys Commands Progress/Results/Core Measures Results/Orders My Orders Orders - ELLIS MURRAY AUTOMATIC SERGING MACHINE OPERATOR Ribs/Unilateral With Chest (09/20/20 15:24) Orphenadrine Inj (Ed Only) (Norflex Inje (09/20/20 15:30) Ketorolac Injection (Toradol Injection) (09/20/20 15:30) Medications Given in ED Current Medications Medications Dose Ordered Sig/Darron Route Start Time Stop Time Status Last Admin Dose Admin Ketorolac Tromethamine 30 mg ONCE PRN IM 09/20/20 15:30 09/25/20 15:29 09/20/20 15:49 30 MG Orphenadrine Citrate 60 mg ONCE ONCE IM 09/20/20 15:30 09/20/20 15:32 DC 09/20/20 15:50 60 MG Vital Signs/I&O 09/20/20 09/20/20 15:18 16:21 Temp 36.0 36.0 Pulse 76 76 Resp 16 16 B/P (MAP) 143/84 (103) 143/84 (103) Pulse Ox 98 98 O2 Delivery Room Air Blood Pressure Mean: 103 Progress Progress Note : Progress Note Pt. examined and in no acute distress. Has slight bruising and swelling of left lateral rib region. Will order x-ray ribs with chest. Orders placed for Norflex 60mg IM and Toradol 30mg IM for pain along with ice pack. Radiographs reviewed and show non displaced right rib fx 8 and 9. Reviewed findings with patient and recommendations for splinting and use of IS. To continue home medications for pain management. Verbalized understanding. Reviewed discharge POC and she is agreeable with plan. Diagnostic Imaging Diagonstic Imaging: Xray Plain Films/CT/US/NM/MRI: other (ribs) Comments NAME: [facility] REC#: [id number] PT STATUS: REG ER : 1965 PHYSICIAN: ELLIS MURRAY AUTOMATIC SERGING MACHINE OPERATOR ADMIT DATE: 09/20/20/ER Signed Date of Exam:09/20/20 RIBS/UNILATERAL WITH CHEST HISTORY: Fall, left rib injury COMPARISON: 05/30/2019 TECHNIQUE: Frontal view of the chest. Frontal and oblique views of the left ribs. FINDINGS: Lung volumes are large. No focal consolidation is seen. There is no pleural effusion or pneumothorax. The cardiac silhouette is normal in size. Spine screws appear stable. There is a nondisplaced fracture of the lateral left 9th rib. There may be a nondisplaced fracture of the 8th rib as well. IMPRESSION: 1. Nondisplaced fracture of the lateral left 9th rib, and possibly the 8th rib. Dictated by: Dictated on workstation # [id number] Dict: 09/20/20 1602 Trans: 09/20/20 1615 [facility] [id number] Interpreted by: JULY SILVER MD Electronically signed by: JULY SILVER MD 09/20/20 1615 Reviewed: Reviewed by Me Departure Impression Primary Impression: Fall Additional Impression: Rib fractures Disposition: 01 HOME, SELF-CARE Condition: Improved Departure-Patient Inst. Decision time for Depature: 16:13 Referrals: REMINGTON DUNN MD (PCP/Family) Primary Care Physician Patient Instructions: Rib Fractures in Adults Add. Discharge Instructions: Plan: 1. Discharge home. May take home pain medications as directed to help with pain. 2. Follow up with your primary care provider as needed. 3. Splint with pillow and use incentive spirometer every 2-4 hours to prevent pneumonia. 4. Apply ice 20 minutes at a time 4-6x per day. 5. Return to ER for any new, worsening, or concerning symptoms. All discharge instructions reviewed with patient and/or family. Voiced understanding. ELLIS MURRAY AUTOMATIC SERGING MACHINE OPERATOR Sep 20, 2020 15:40
--- NOTE | 2020-09-20 16:06 | Diagnostic Imaging Report ---
HISTORY: Fall, left rib injury COMPARISON: 05/30/2019 TECHNIQUE: Frontal view of the chest. Frontal and oblique views of the left ribs. FINDINGS: Lung volumes are large. No focal consolidation is seen. There is no pleural effusion or pneumothorax. The cardiac silhouette is normal in size. Spine screws appear stable. There is a nondisplaced fracture of the lateral left 9th rib. There may be a nondisplaced fracture of the 8th rib as well. IMPRESSION: 1. Nondisplaced fracture of the lateral left 9th rib, and possibly the 8th rib. Dictated by: Dictated on workstation # [id number]
[2020-09-20 16:21] VITALS: BP 143/84
== END 2020-09-20 16:21 | disposition home or self-care (01) ==
LOC: EDUNIT# 15:10 → ER 15:14
DX: S22.32XA Fracture of one rib, left side, initial encounter for closed fracture (principal); I10 Essential (primary) hypertension; Z88.2 Allergy status to sulfonamides; Z88.5 Allergy status to narcotic agent; Z88.8 Allergy status to other drugs, medicaments and biological substances; Z85.41 Personal history of malignant neoplasm of cervix uteri; Z86.73 Personal history of transient ischemic attack (TIA), and cerebral infarction without residual deficits; Z82.61 Family history of arthritis; Z82.49 Family history of ischemic heart disease and other diseases of the circulatory system; Z77.22 Contact with and (suspected) exposure to environmental tobacco smoke (acute) (chronic); Z79.82 Long term (current) use of aspirin; W01.0XXA Fall on same level from slipping, tripping and stumbling without subsequent striking against object, initial encounter
CPT/HCPCS: 71101